=== PATIENT | female | born 1980 | race Caucasian/White ===

== ENCOUNTER 2018-11-07 17:12 | Emergency (ER) | payer OTHER ==
--- NOTE | 2018-11-07 17:30 | EDPHY ---
H & P Stated Complaint: Yrs of IBS, constipation/bloating increased, nausea. Time Seen by Provider: 11/07/18 17:30 - Personal History Current Tetanus/Diphtheria Vaccine: Yes Tetanus Vaccine Date: 2012 - Medical/Surgical History Hx Asthma: No Hx Chronic Respiratory Disease: No Hx Diabetes: No Hx Cardiac Disease: No Hx Renal Disease: No Hx Cirrhosis: No Hx Alcoholism: No Hx HIV/AIDS: No Hx Splenectomy or Spleen Trauma: No Other PMH: IBS, Csection, ovarian cysts, - Social History Smoking Status: Never smoked Constitutional: Initial Vital Signs Temperature (C) 37.0 C 11/07/18 17:25 Heart Rate 91 11/07/18 17:25 Respiratory Rate 18 11/07/18 17:25 Blood Pressure 132/87 H 11/07/18 17:25 O2 Sat (%) 96 11/07/18 17:25 O2 Delivery Mode Room Air Allergies/Adverse Reactions: No Known Allergies Allergy (Unverified 11/07/18 17:25) Medical Decision Making - Diagnostics Imaging Results: Imaging Impressions Abdomen CT 11/07/18 17:39 Impression: 1. No abdominopelvic inflammatory mass. 2. Large amount retained fecal material in the colon compatible with constipation. Nabeel David was notified of these findings at 7:51 PM on 11/07/2018 Imaging: Discussed imaging studies w/ embedded software developer Radiologist, I viewed and interpreted images myself ED Course/Re-evaluation: CHIEF COMPLAINT: Abdominal pain, constipation, IBS HISTORY OF PRESENT ILLNESS: The patient is a 38 y/o female with a history of IBS with constipation and ovarian cysts complaining of worsening constipation, bloating, and nausea. The patient has seen two different gastroenterologists due to these symptoms. The first physician prescribed her a muscle relaxer, without relief of symptoms. She saw her PCP at [facility] and was diagnosed with IBS associated with constipation. She has also been to the emergency department due to the pain and was only diagnosed with constipation. She reports that she hasn't had a normal bowel movement since July, 4 months ago. Last week the pain increased and she had a near-syncopal event due to the pain. Today the pain continued to increase and she became concerned that she had a GI blockage although she is still passing flatulence. She is trying to schedule a follow up with a supervisor anodizing for a colonoscopy. No fever, headache, body aches, lightheadedness, chest pain, heart palpitations, shortness of breath, cough, urinary complaints, numbness, paresthesias. REVIEW OF SYSTEMS: A comprehensive 10 system review of systems is otherwise negative aside from elements mentioned in the history of present illness and medical decision making. PHYSICAL EXAM: HR, BP, O2 Sat, RR. Temp noted General Appearance: Alert, well hydrated, appropriate, and non-toxic appearing. Head: Atraumatic without scalp tenderness or obvious injury Eyes: Pupils equal, round, reactive to light and accommodation, EOMI, no trauma , no injection. Ears: Clear bilaterally, no perforation, normal landmarks Nose: Atraumatic, no rhinorrhea, clear. Throat: There is no erythema or exudates, no lesions, normal tonsils, mucus membranes moist. Neck: Supple, 2+ carotid upstroke, nontender, no lymphadenopathy. Respiratory: No retractions, no distress, no wheezes, and no accessory muscle use. Lungs are clear to auscultation bilaterally. Cardiovascular: Regular rate and rhythm, no murmurs, rubs, or gallops. Bilateral carotid, radial, dorsalis pedis, and posterior tibial pulses intact. Good capillary refill all extremities. Gastrointestinal: Abdomen is soft, nontender, non-distended, no masses, no rebound, no guarding, no peritoneal signs. Musculoskeletal: Normal active ROM of all extremities, atraumatic. Neurological: Alert, appropriate, and interactive. The patient has normal DTRs and non-focal cranial nerves, motor, sensory, and cerebellar exam. Skin: No rashes, good turgor, no nodules on palpation. 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 MEDICAL DECISION MAKING: The patient is a 38 y/o female with a history of IBS with constipation and ovarian cysts presenting with worsening constipation, bloating, and nausea. She has tried to follow up with a supervisor anodizing for a colonoscopy, but has been unable to schedule an appointment. On exam she has a normal exam including a benign exam. I have discussed the risks and benefits associated with having a CT, this patient is not a good candidate for a CT as she has chronic constipation. She would like to have the CT today. Patient needs a colonoscopy with a GI for her symptoms. I have also discussed starting Linzess, which she states she did not start due to the cost. Labs and abdominopelvic CT ordered; 1L IV NS administered. 1952: I spoke with the radiologist who reports that the patient is constipated. Patient's labs are also unremarkable. 1954: Reassessed patient and discussed imaging and laboratory findings. I have advised her to follow up with a supervisor anodizing for a colonoscopy. Return precautions provided; patient is comfortable with this plan. - Data Points Laboratory Results: Laboratory Results 11/07/18 18:00 11/07/18 18:00 11/07/18 11/07/18 11/07/18 18:05 18:00 18:00 WBC RBC Hgb POC Hgb 14.6 gm/dL gm/dL (12.6-16.3) Hct POC Hct 43 % % (38-47) MCV MCH MCHC RDW Plt Count MPV Neut % (Auto) Lymph % (Auto) Blaine % (Auto) Eos % (Auto) Baso % (Auto) Nucleat RBC Rel Count Absolute Neuts (auto) Absolute Lymphs (auto) Absolute Monos (auto) Absolute Eos (auto) Absolute Basos (auto) Absolute Nucleated RBC Immature Gran % Immature Gran # POC Sodium 139 mEq/L mEq/L (135-145) Sodium 136 mEq/L mEq/L (135-145) POC Potassium 3.9 mEq/L mEq/L (3.3-5.0) Potassium 4.2 mEq/L mEq/L (3.5-5.2) POC Chloride 100 mEq/L mEq/L (97-110) Chloride 99 mEq/L mEq/L (97-110) Carbon Dioxide 27 mEq/l mEq/l (22-31) POC Total CO2 25 mEq/L mEq/L (22-31) Anion Gap 10 mEq/L mEq/L (6-14) POC BUN 16 mg/dL mg/dL (7-23) BUN 17 mg/dL mg/dL (7-23) Creatinine 1.0 mg/dL mg/dL (0.6-1.0) POC Creatinine 1.0 mg/dL mg/dL (0.6-1.0) Estimated GFR > 60 Glucose 84 mg/dL mg/dL (70-100) POC Glucose 86 mg/dL mg/dL (70-100) Calcium 9.1 mg/dL mg/dL (8.5-10.4) Total Bilirubin 0.5 mg/dL mg/dL (0.1-1.4) Conjugated Bilirubin 0.4 mg/dL mg/dL (0.0-0.5) Unconjugated Bilirubin 0.1 mg/dL mg/dL (0.0-1.1) AST 30 IU/L IU/L (14-46) ALT 32 IU/L IU/L (9-52) Alkaline Phosphatase 47 IU/L IU/L (38-126) Total Protein 7.0 g/dL g/dL (6.3-8.2) Albumin 4.3 g/dL g/dL (3.5-5.0) Lipase 114 IU/L IU/L (23-300) Beta HCG, Qual NEGATIVE 11/07/18 18:00 WBC 7.52 10^3/uL 10^3/uL (3.80-9.50) RBC 4.46 10^6/uL 10^6/uL (4.18-5.33) Hgb 14.2 g/dL g/dL (12.6-16.3) POC Hgb Hct 41.5 % % (38.0-47.0) POC Hct MCV 93.0 fL fL (81.5-99.8) MCH 31.8 pg pg (27.9-34.1) MCHC 34.2 g/dL g/dL (32.4-36.7) RDW 11.7 % % (11.5-15.2) Plt Count 288 10^3/uL 10^3/uL (150-400) MPV 8.4 fL L fL (8.7-11.7) Neut % (Auto) 69.2 % % (39.3-74.2) Lymph % (Auto) 25.3 % % (15.0-45.0) Blaine % (Auto) 4.4 % L % (4.5-13.0) Eos % (Auto) 0.7 % % (0.6-7.6) Baso % (Auto) 0.3 % % (0.3-1.7) Nucleat RBC Rel Count 0.0 % % (0.0-0.2) Absolute Neuts (auto) 5.21 10^3/uL 10^3/uL (1.70-6.50) Absolute Lymphs (auto) 1.90 10^3/uL 10^3/uL (1.00-3.00) Absolute Monos (auto) 0.33 10^3/uL 10^3/uL (0.30-0.80) Absolute Eos (auto) 0.05 10^3/uL 10^3/uL (0.03-0.40) Absolute Basos (auto) 0.02 10^3/uL 10^3/uL (0.02-0.10) Absolute Nucleated RBC 0.00 10^3/uL 10^3/uL (0-0.01) Immature Gran % 0.1 % % (0.0-1.1) Immature Gran # 0.01 10^3/uL 10^3/uL (0.00-0.10) POC Sodium Sodium POC Potassium Potassium POC Chloride Chloride Carbon Dioxide POC Total CO2 Anion Gap POC BUN BUN Creatinine POC Creatinine Estimated GFR Glucose POC Glucose Calcium Total Bilirubin Conjugated Bilirubin Unconjugated Bilirubin AST ALT Alkaline Phosphatase Total Protein Albumin Lipase Beta HCG, Qual Medications Given: Discontinued Medications Sodium Chloride (Ns) 1,000 mls @ 0 mls/hr IV EDNOW ONE; Wide Open PRN Reason: Protocol Stop: 11/07/18 17:40 Last Admin: 11/07/18 18:00 Dose: 1,000 mls Point of Care Test Results: Chemistry 11/07/18 18:05 POC Sodium 139 mEq/L mEq/L (135-145) POC Potassium 3.9 mEq/L mEq/L (3.3-5.0) POC Chloride 100 mEq/L mEq/L (97-110) POC Total CO2 25 mEq/L mEq/L (22-31) POC BUN 16 mg/dL mg/dL (7-23) POC Creatinine 1.0 mg/dL mg/dL (0.6-1.0) POC Glucose 86 mg/dL mg/dL (70-100) ISTAT H&H 11/07/18 18:05 POC Hgb 14.6 gm/dL gm/dL (12.6-16.3) POC Hct 43 % % (38-47) Departure - Departure Disposition: Home, Routine, Self-Care Clinical Impression: Constipation Condition: Good Instructions: Irritable Bowel Syndrome (ED), Constipation (ED) Additional Instructions: 1. Follow up with a supervisor anodizing to get a colonoscopy. 2. Follow-up with your primary doctor within 72 hours. 3. Return to the Emergency Department for fever, chest pain, shortness of breath , increasing pain or other worsening of condition. Referrals: Clint Singh DO [Primary Care Provider] - As per Instructions Chris Nolen MD [Medical Doctor] - As per Instructions Report Scribed for: Nabeel David Report Scribed by: Alicia Alegria Date of Report: 11/07/18 Time of Report: 17:31
[2018-11-07] MEDS ORDERED: NS 1,000 ML IV ONE (17:39)
[2018-11-07] MEDS ORDERED: IOPAMIDOL (ISOVUE-300) 100 ML BTL ONE (18:27)
[2018-11-07 18:41] LABS: PLATELET COUNT 288 10^3/uL (150-400)
[2018-11-07 20:07] VITALS: BP 122/80
== END 2018-11-07 20:05 | disposition home or self-care (01) ==
DX: K59.00 Constipation, unspecified (principal); K58.9 Irritable bowel syndrome, unspecified; E86.9 Volume depletion, unspecified
CPT/HCPCS: 82435-PO; 82565-PO; 82947-PO; 84132-PO; 84295-PO; 84520-PO; 85014-ER; Q9967

== ENCOUNTER → 2018-11-10 | Outpatient (CLI) | payer OTHER | LOC: EDSTATUS 10-21 11:15 → FIMAGING 19:30 → EDSTATUS 20:00 | PROVIDERS: ATTEND Orthopaedic Surgery | DX: S83.511A Sprain of anterior cruciate ligament of right knee, initial encounter (principal); S83.411A Sprain of medial collateral ligament of right knee, initial encounter; M25.461 Effusion, right knee; M24.10 Other articular cartilage disorders, unspecified site ==

== ENCOUNTER 2019-01-13 05:49 | Day surgery (SDC) | payer OTHER ==
--- NOTE | 2019-01-12 16:31 | GHP ---
[f rep st] PREOP HISTORY AND PHYSICAL DATE OF ADMISSION: 01/13/2019 HISTORY: Radha is a 38-year-old female, who injured her right knee skiing back in September of this ye ar. She had numerous falls while skiing, and in one of them twisted her knee when she caught an edge , and she felt a pop. She was able to ski down. She developed swelling. Her exam shows a positive Clarisa's test, positive anterior drawer, and a positive pivot shift, she had an MRI that confirms a complete ACL rupture, she has posterolateral tibial bone contusion, mild MCL obvious menis regina pathology. She is an active individual, wishes to continue pivoting activities, and has elected to undergo an ACL reconstruction. PAST MEDICAL HISTORY: 1. She has had a history of a seizure 1 time. 2. She has had a x2. 3. She has had excision of an ovarian cyst. 4. Breast augmentation. ALLERGIES: No known drug allergies. MEDICATIONS: 1. She is using Wellbutrin 300 mg p.o. daily. 2. Prozac mg p.o. daily. SOCIAL HISTORY: She is a nonsmoker. REVIEW OF SYSTEMS: Negative for cardiopulmonary disease. PHYSICAL EXAM: GENERAL: Radha is a well-developed, well-nourished female in no apparent distress. H EAD AND NECK: Normocephalic, atraumatic. CHEST: Clear. CARDIOVASCULAR: Regular rate and rhythm. ABDOMEN: Soft. NEUROLOGIC: She is alert and oriented x3. MUSCULOSKELETAL: Examination of the [facility] knee shows full extension, trace effusion, 140 degrees of flexion. She has mild medial joint geo e tenderness, but a stable MCL. The lateral collateral is stable. On Clarisa's testing, she has pos itive Clarisa's, positive anterior drawer, positive pivot shift. SKIN: Intact. NEUROVASCULAR: Int act. IMPRESSION: Right knee ACL rupture, mild, grade 1 MCL sprain, posterolateral tibial plateau contusio n. PLAN: Right knee arthroscopy, cartilage work as needed, and ACL reconstruction using patellar tendon autograft. Benefits and risks of surgery have been reviewed with Radha, and she has signed a consent form, and wishes to proceed. /[id number]/MODL
[2019-01-13] MEDS ORDERED: LR 1,000 ML IV ONE (06:19)
[2019-01-13] MEDS ORDERED: ACETAMINOPHEN 500 MG TAB PO ONE (06:19)
[2019-01-13] MEDS ORDERED: LR 1,000 ML IV SCH (06:19)
[2019-01-13] MEDS ORDERED: LIDOCAINE 1% 2 ML INJ ID PRN (06:19)
[2019-01-13] MEDS ORDERED: ceFAZolin 2 GM/DEXTROSE 100 ML IV ONE (06:19)
[2019-01-13] MEDS ORDERED: BUPIVACAINE/EPI 0.5% 30 ML SDV ONE (06:26)
[2019-01-13] MEDS ORDERED: POLYMYXIN B SULFATE 500,000 UNIT/10 ML SYR IRR ONE (06:26)
[2019-01-13] MEDS ORDERED: BUPIVACAINE 0.5% 30 ML SDV ONE (06:26)
[2019-01-13] MEDS ORDERED: BACITRACIN 50,000 UNITS/10 ML SYR IRR ONE (06:26)
--- NOTE | 2019-01-13 06:36 | PDANEPAE ---
ANE History of Present Illness ski injury here for ACL repair ANE Past Medical History - Cardiovascular History Hx Hypertension: No Hx Arrhythmias: Yes Hx Chest Pain: No Hx Coronary Artery / Peripheral Vascular Disease: No Hx CHF / Valvular Disease: No Hx Palpitations: No Cardiovascular History Comment: has been told she has mitral valve prolapse- no complications currently per pt report - Pulmonary History Hx COPD: No Hx Asthma/Reactive Airway Disease: No Hx Recent Upper Respiratory Infection: No Hx Oxygen in Use at Home: No Hx Sleep Apnea: No Sleep Apnea Screening Result - Last Documented: Negative Pulmonary History Comment: hx of exercise-induced asthma in HS, no issues currently - Neurologic History Hx Cerebrovascular Accident: No Hx Seizures: Yes Hx Dementia: No Neurologic History Comment: seizure in 2017- hospitalized and worked up. stopped taking benzo's suddenly was the conclusion. no seizures since - Endocrine History Hx Diabetes: No - Renal History Hx Renal Disorders: No - Liver History Hx Hepatic Disorders: No - Neurological & Psychiatric Hx Hx Neurological and Psychiatric Disorders: Yes Neurological / Psychiatric History Comment: depression - Cancer History Hx Cancer: No - Congenital Disorder History Hx Congenital Disorders: No - GI History Hx Gastrointestinal Disorders: Yes Gastrointestinal History Comment: IBS. chronic constipation- probiotics help - Other Health History Other Health History: wears glasses/ contacts - Chronic Pain History Chronic Pain: Yes (right knee) - Surgical History Prior Surgeries: x2 -2007, 2009. ovarian cyst removed 2012. breast augmentation 2016 ANE Review of Systems Review of Systems: - Exercise capacity METS (RN): 4 METS ANE Patient History - Allergies Allergies/Adverse Reactions: No Known Allergies Allergy (Verified 01/05/19 09:14) - Home Medications Home Medications: Herbals/Supplements -Info Only 01/05/19 [Last Taken Unknown] Prozac 20 MG (*) 01/05/19 [Last Taken Unknown] Wellbutrin 100mg (*) 01/05/19 [Last Taken Unknown] - NPO status NPO Status: no food or drink >8 hours - Anes Hx Anes Hx: no prior problems - Smoking Hx Smoking Status: Never smoked - Alcohol Use Alcohol Use: Occasionally - Family Anes Hx Family Anes Hx: none Family Hx Anesthesia Complications: none ANE Labs/Vital Signs - Vital Signs Vital Signs: reviewed preoperatively; see RN documention for details Height: 165.1 cm Weight: 63.503 kg ANE Physical Exam - Airway Neck exam: FROM Mallampati Score: Class 2 Mouth exam: normal dental/mouth exam - Pulmonary Pulmonary: no respiratory distress, clear to auscultation - Cardiovascular Cardiovascular: regular rate and rhythym, no murmur, rub, or gallop - ASA Status ASA Status: II ANE Anesthesia Plan Anesthesia Plan: GA w LMA [facility] Anesthesia: single shot NB, adductor canal FNB
[2019-01-13] MEDS ORDERED: MIDAZOLAM 2 MG/2 ML VIAL IVP ONE (06:37)
[2019-01-13] MEDS ORDERED: fentaNYL 100 MCG/2 ML INJ ONE ×3 (06:43→11:12)
[2019-01-13] MEDS ORDERED: ONDANSETRON 4 MG/2 ML VIAL ONE (06:44)
[2019-01-13] MEDS ORDERED: DEXAMETHASONE 4 MG/ML VIAL ONE (06:44)
[2019-01-13] MEDS ORDERED: clonIDINE 1 MG/10 ML VIAL EP ONE (06:44)
[2019-01-13] MEDS ORDERED: PROPOFOL 200 MG/20 ML VIAL ONE ×2 (06:44→09:39)
[2019-01-13] MEDS ORDERED: ROPIVACAINE HCL 150 MG/30 ML INJ ONE (06:44)
[2019-01-13] MEDS ORDERED: LIDOCAINE 2% 100 MG/5 ML SYR ONE (06:46)
--- NOTE | 2019-01-13 07:06 | PDHPUP ---
History & Physical Update H&P update statement: This history and physical update is based on an assessment of the patient which was completed after admission or registration (within 24 hours), but prior to the surgery/procedure. no change H&P update: no change in patient's condition since H&P completed
[2019-01-13] MEDS ORDERED: PROPOFOL/EMULSION 500 MG/50 ML BOTTLE IV ONE (07:19)
[2019-01-13] MEDS ORDERED: ONDANSETRON 4 MG/2 ML VIAL IVP PRN (08:40)
[2019-01-13] MEDS ORDERED: HYDROmorphONE/DILAUDID 1 MG/ML INJ IVP PRN (08:40)
[2019-01-13] MEDS ORDERED: DIAZEPAM 10 MG/2 ML SYR IVP PRN (08:40)
[2019-01-13] MEDS ORDERED: MEPERIDINE 25 MG/0.5 ML AMP IVP PRN (08:40)
[2019-01-13] MEDS ORDERED: NALOXONE HCL 0.4 MG/ML INJ IVP PRN (08:40)
[2019-01-13] MEDS ORDERED: fentaNYL 100 MCG/2 ML INJ IVP PRN (08:40)
[2019-01-13] MEDS ORDERED: HYDROCODONE/APAP 5/325 TAB PO PRN (08:40)
[2019-01-13] MEDS ORDERED: oxyCODONE IR 5 MG TAB PO PRN (08:40)
[2019-01-13] MEDS ORDERED: PROMETHAZINE HCL 25 MG/ML INJ IVP PRN (08:40)
[2019-01-13] MEDS ORDERED: ACETAMINOPHEN 500 MG TAB PO PRN (08:40)
--- NOTE | 2019-01-13 10:23 | POSTANESTH ---
Post Anesthetic Evaluation Cardiovascular Status: Normal, Stable, Similar to Pre-Op Cond Respiratory Status: Requires Airway Assist Level of Consciousness/Mental Status: Moderately Sleepy Pain Control: Adequate, Prn Tx Ordered Nausea/Vomiting Control: Adequate, Prn Tx Ordered Complications Possibly Related to Anesthesia: None Noted
--- NOTE | 2019-01-13 11:35 | GOP ---
[f rep st] OPERATIVE REPORT DATE OF OPERATION: SURGEON: Jermaine Paredes MD LAW REPORTER: Moreno RABAGO. ANESTHESIA: Dr. Kendrick. PREOPERATIVE DIAGNOSIS: 1. Right knee anterior cruciate ligament rupture. 2. Grade 1 medial collateral ligament sprain. 3. Posterolateral tibial plateau contusion. POSTOPERATIVE DIAGNOSIS: 1. Right knee anterior cruciate ligament rupture. 2. Grade 1 medial collateral ligament sprain. 3. Lateral plateau bone contusion. 4. Distal trochlear groove chondromalacia. PROCEDURE PERFORMED: Right knee arthroscopy, trochlear groove chondroplasty with small area microfra cture, anterior cruciate ligament reconstruction with patellar tendon autograft. FINDINGS: A careful exam under anesthesia demonstrates positive Clarisa's, a positive anterior drawe r and a positive pivot shift, grade 3. She has full motion, trace effusion. On arthroscopy, the pat ellofemoral joint has some chondromalacia, but very distally in the trochlear groove, and the lesion is about a cm or so in size. It does have some softening and unstable edges, amenable to a small are a of microfracture and cleanup. The remainder of the patellofemoral joint has good articular surface s. The ACL was clearly torn completely in the notch. The PCL is intact. In the medial compartment, the articular surface shows a little wear, maybe grade 2 on the weightbearing medial femoral condyle , minimal on the plateau, and the meniscus is intact. In the lateral compartment, there is a minimal grade 1 fraying of the lateral plateau. The femoral condyle is fine, and the lateral meniscus intac t. SPECIMENS: None. ESTIMATED BLOOD LOSS: Minimal. DESCRIPTION OF PROCEDURE: The patient was taken to the operating room after Dr. Kendrick had provided a n adductor canal block. She was placed under general anesthetic. She received 2 g of IV Ancef. A c areful exam under anesthesia was carried out. A tourniquet was placed high on the right thigh, and t he right leg was carefully prepped and draped with chlorhexidine. The knee was draped for arthroscop y. Arthroscopy through standard portals was carried out. I used a small rotary shaver to smooth the distal trochlear groove cartilage and a small microfracture awl to make a few small perforations to stimulate some healing response. I used a rotary shaver to do some superficial smoothing of the medi al femoral condyle. I used a rotary shaver to do a notchplasty, removing the torn ACL fibers as well as a bur, establishing a notchplasty so that the [id number] position was clearly visualized. This was a fairly small notch that was enlarged to give the graft more room. My initial intention was a patellar tendon allograft. I discussed both allograft and autograft with the patient. The graft shraddha johnson that we had I felt was an inadequate graft, and I wanted to optimize her graft, so I did go ahe ad and used a patellar tendon autograft. I harvested this through a small 2 incision technique. I u sed about a 10 mm slip of tendon. I then used a 3M guide at 75 degrees to pass a guidepin, then a 10 mm reamer to make a 10 mm tibial tunnel, and I beveled the back edge to abrasion of the graft. Thro ugh a distal lateral femoral incision and the guide set at 120 degrees, I passed the guidepin emergin g it immediately ahead of the [id number] position at the junction of the lateral wall and roof of t he notch. I then passed the graft 1st through to the tibia into the femur and secured the graft prox imally with a 7 x 23 cannulated absorbable screw. I checked the graft isometry. It had minimal take up of a mm or so in full extension. I thought the isometrically was very good. The bone in the prox imal tibia I found a bit saw for interference fit, so I used a 4.5 Synthes screw and washer and tied the sutures threaded through the bone plug with multiple knots over the screw post, and this provided excellent fixation of the graft. Knee had good motion. Negative Clarisa test. The graft had appro priate tension in the knee and nicely cleared the lateral wall and roof of the notch without impingem ent. The joint was irrigated, and I placed 15 cc of 0.5% plain Marcaine in the joint. All the wound s were antibiotic irrigated the IT band closed with 2-0 Vicryl. I reapproximated the patellar tendon with 2-0 PDS, and I used bone graft from the tunnel drilling to graft the harvest site on the patell a. The remainder of the closure was with 3-0 Monocryl in the subcutaneous tissue and 4-0 Prolene in the skin. The wounds were dressed with Betadine-soaked Adaptic, 4x4s, sterile Webril, and a long-leg DOLORES stocking and Jus wrap were applied. There were no complications. OPERATIVE INDICATION: The patient is a 38-year-old female who injured her right knee skiing with the above-noted injuries. She is an active individual and wishes to continue pivoting sports, so she nolan s elected to undergo an ACL reconstruction. She presents with history, exam and MRI consistent with an ACL tear. DRAINS: None. COUNTS: All counts correct. DISPOSITION: The patient was taken in stable condition to recovery. My surgical endoscopist, Moreno Vyas, was a medical necessity for leg positioning, soft tissue ex posure as well as graft preparation and the safe operative time. /[id number]/MODL
[2019-01-13 12:56] VITALS: BP 110/66
== END 2019-01-13 12:58 | disposition home or self-care (01) ==
LOC: FSGY 05:49
PROVIDERS: ATTEND Orthopaedic Surgery
DX: S83.511A Sprain of anterior cruciate ligament of right knee, initial encounter (principal); S83.411A Sprain of medial collateral ligament of right knee, initial encounter; M94.261 Chondromalacia, right knee; V00.321A Fall from snow-skis, initial encounter; Y93.23 Activity, snow (alpine) (downhill) skiing, snowboarding, sledding, tobogganing and snow tubing; Y99.8 Other external cause status
CPT/HCPCS: C1713; J0690; J0735; J1100; J2001; J2250; J2405; J2704; J2795; J3010